=== PATIENT | female | born 1990 | race Caucasian/White ===

== ENCOUNTER 2019-07-02 16:43 | Emergency (ER) | payer SELFPAY ==
--- NOTE | 2019-07-02 16:45 | ECG_ITS ---
Measurements Intervals [place] Rate: 58 P: 46 NM: 140 QRS: 28 QRSD: 89 T: 29 QT: 369 QTc: 362 Interpretive Statements SINUS BRADYCARDIA WITH SINUS ARRHYTHMIA BORDERLINE ECG Electronically Signed On 07-02-2019 18:51:02 CDT by Oscar Hernandez D.O.
[2019-07-02 17:09] VITALS: BP 118/69; PULSE 89; RESP 16; TEMP 36.4; O2SAT 98
--- NOTE | 2019-07-02 19:49 | PC.NURSE ---
PATIENT CALLED AT THIS TIME FROM WAITING ROOM, NO ANSWER.
== END 2019-07-02 19:49 | disposition left against medical advice (07) ==
LOC: ANHED 20:49
DX: T75.4XXA Electrocution, initial encounter (principal); W86.0XXA Exposure to domestic wiring and appliances, initial encounter
CPT/HCPCS: 93005; 99199

== ENCOUNTER 2019-08-18 22:02 | Emergency (ER) | payer SELFPAY ==
--- NOTE | ~2019-08-18 | XR_ITS ---
EXAMINATION: XR ribs RT 2V w CXR 2V DATE: 08/18/2019 23:57 INDICATION: Right chest pain. TECHNIQUE: Frontal and lateral views of the chest and 3 views of the right ribs were obtained. COMPARISON: Chest 2 views 03/26/2019, CT abdomen and pelvis 08/18/2019 FINDINGS: CHEST TWO VIEWS: The chest demonstrates clear lungs without pneumonia, pleural effusion, or pneumotho rax. The heart size is normal. RIGHT RIBS: There is no rib fracture. IMPRESSION: 1. No rib fracture. Reviewed, dictated and finalized at location A. IMPRESSION: 1. No rib fracture.
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
[2019-08-18 22:03] VITALS: BP 122/82; PULSE 80; RESP 18; TEMP 36.6; O2SAT 100
[2019-08-18] MEDS: KETOROLAC 30 MG/ML VIAL (*BKC) IV PUSH (23:00)
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
[2019-08-18 23:43] LABS: Estimated CRCL calculation 105 ml/min; Estimated Glomerular Filt Rate > 60
[2019-08-19 01:32] VITALS: BP 122/74; PULSE 76; RESP 19; TEMP 36.8; O2SAT 100
== END 2019-08-19 01:33 | disposition home or self-care (01) ==
PROVIDERS: Emergency Provider Emergency Medicine
DX: S20.211A Contusion of right front wall of thorax, initial encounter (principal); S30.1XXA Contusion of abdominal wall, initial encounter; J45.909 Unspecified asthma, uncomplicated; K50.90 Crohn's disease, unspecified, without complications; Z85.048 Personal history of other malignant neoplasm of rectum, rectosigmoid junction, and anus; F17.200 Nicotine dependence, unspecified, uncomplicated; Y04.8XXA Assault by other bodily force, initial encounter
CPT/HCPCS: 36415; 71046; 71100; 74177; 96374; 99284; J1885; Q9967

== ENCOUNTER 2020-08-04 10:43 | Emergency (ER) | payer SELFPAY ==
--- NOTE | ~2020-08-04 | XR_ITS ---
EXAMINATION: XR shoulder LT min 2V DATE: 08/04/2020 11:23 INDICATION: Left shoulder pain. Injury. TECHNIQUE: 4 views of left shoulder were obtained. COMPARISON: None. FINDINGS: Bone alignment is normal. No fracture. There is mild osteoarthritis of acromioclavicular barbara int. Glenoid humeral joint is normal. There are enthesophytes at coracoclavicular ligament. IMPRESSION: 1. Mild osteoarthritis of acromioclavicular joint. Reviewed, dictated and finalized at location A.
--- NOTE | ~2020-08-04 | XR_ITS ---
EXAMINATION: XR_CERV2-3V_CR DATE: 08/04/2020 11:23 INDICATION: Left-sided neck pain. Injury. TECHNIQUE: 2 views of cervical spine were obtained. COMPARISON: Cervical spine radiographs 08/18/2009. FINDINGS: The cervical spine is not well visualized on the lateral view inferior to C6. Bone alignmen t is normal. Vertebral body heights are normal. Intervertebral disc heights are normal. The facet martha nts are unremarkable. No central canal stenosis or prevertebral soft tissue swelling. IMPRESSION: 1. Normal cervical spine. Note that the cervical spine is not well visualized on the lateral view inf erior to C6. Reviewed, dictated and finalized at location A. IMPRESSION: 1. Normal cervical spine. Note that the cervical spine is not well visualized o n the lateral view inferior to C6.
[2020-08-04 11:01] VITALS: BP 108/63; PULSE 62; RESP 16; TEMP 36.6; O2SAT 100
[2020-08-04 11:08] VITALS: BP 108/63; PULSE 62; RESP 16; TEMP 36.6; O2SAT 100
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
== END 2020-08-04 11:46 | disposition home or self-care (01) ==
PROVIDERS: Emergency Provider Emergency Medicine
DX: S46.012A Strain of muscle(s) and tendon(s) of the rotator cuff of left shoulder, initial encounter (principal); V86.96XA Unspecified occupant of dirt bike or motor/cross bike injured in nontraffic accident, initial encounter; J45.909 Unspecified asthma, uncomplicated; F31.9 Bipolar disorder, unspecified; K50.90 Crohn's disease, unspecified, without complications; Z85.038 Personal history of other malignant neoplasm of large intestine; F17.200 Nicotine dependence, unspecified, uncomplicated
CPT/HCPCS: 72040; 73030; 99214; G0463

== ENCOUNTER 2020-09-09 16:26 | Emergency (ER) | payer SELFPAY ==
[2020-09-09 16:30] VITALS: BP 112/73; PULSE 92; RESP 16; TEMP 37.4; O2SAT 99
[2020-09-09 16:45] VITALS: BP 112/73; PULSE 92; RESP 16; TEMP 37.4; O2SAT 99
--- NOTE | 2020-09-09 16:57 | ED.URI ---
HPI - URI/Sore Throat General Chief Complaint: Upper Respiratory Infection Stated Complaint: sob Time Seen by Provider: 09/09/20 16:50 Source: patient, family and RN notes reviewed Mode of arrival: ambulatory Limitations: no limitations History of Present Illness HPI Narrative: 30 year old female who presents to [facility] care with complaints of feelings of upper chest tightness, cough,exhaustion, shortness of breath for 1 month duration with audible wheezing noted. Patient states history of asthma and states has been using inhaler more frequently with little improvement in her symptoms,patient states only has albuterol inhaler previously had Trilogy but hasn't had money or PCP to get other inhalers. Patient denies any known fevers, chills, or sweats,states that her cough is dry, denies any sore throat, sinus congestion or ear pain, admits to some nasal drainage at times which is clear. Patient admits to daily tobacco use which she states has decreased use and also smokes marijuana. Patient has history of bipolar disease and states she takes no psychiatric medications. MD elicited complaint: cough, rhinorrhea and other (wheezing) Pertinent past history: pneumonia, COPD, asthma and other (bronchitis and tobacco abuse) Onset (ago): month(s) (1) Consistency: intermittent (tightness to upper chest) Severity: mild Pain scale (0-10): 1 Description of mucous: clear Able to tolerate fluids by mouth: Yes Exacerbating factors: exertion Relieving factors: nothing Treatments prior to arrival: other (inhaler) Related Data Home Medications Medication Instructions Recorded Confirmed Cbd 09/09/20 ProAir HFA 09/09/20 Ventolin 09/09/20 Allergies Allergy/AdvReac Type Severity Reaction Status Date / Time lamotrigine Allergy Unknown Unconscious Verified 08/04/20 11:08 Review of Systems Review of Systems: Narrative: CONSTITUTIONAL: Denies fever, chills, or sweats. EYES: Denies visual changes, redness, or discharge. ENT: Reports some clear rhinorrhea, no congestion, sore throat, or otalgia. CARDIOVASCULAR: Denies chest pain reports tightness intermittent to upper chest, no palpitations, or edema. RESPIRATORY: Positive cough and dyspnea with wheezing GASTROINTESTINAL: Denies abdominal pain, nausea, vomiting, or diarrhea. GENITOURINARY: Denies dysuria or hematuria. SKIN: Denies rash or itching. MUSCULOSKELETAL: Denies back pain, joint pain, or myalgia. NEUROLOGIC: Denies headache, numbness, or weakness. PSYCHIATRIC: Positive for history of anxiety and depression. All systems reviewed & are unremarkable except as noted in HPI and below PMFSH Past Medical History Medical History (Updated 09/12/20 @ 11:09 by Elyssa Wills NP) Asthma Bipolar disorder COPD (chronic obstructive pulmonary disease) case management patient History of rectal cancer UTI (urinary tract infection) Surgical History Surgical History History of resection of rectum History of tonsillectomy History of tubal ligation Family History Family History (Updated 09/12/20 @ 11:02 by Elyssa Wills NP) Other Cancer Diabetes mellitus Hypertension Social History Social History (Updated 09/12/20 @ 11:02 by Elyssa Wills NP) Smoking status: Current every day smoker Alcohol intake: unknown Substance use: current Substance use type: marijuana Living arrangements: with friend(s) Gender identity (if verbalized by the patient): Female Comments At time of signature, agree with nursing past medical, surgical, social and family history. There is no relevant family history pertinent to the presenting complaint Exam Narrative: Exam Narrative: GENERAL: Well-appearing, well-nourished, unkept appearance and in no acute distress. HEAD: Normocephalic, atraumatic. EYES: PERRLA and EOMI. ENT: Nares clear, clear rhinorrhea no epistaxis. Mucous membranes moist. TM's normal with good light reflex, thro
--- NOTE | 2020-09-09 17:15 | PC.NURSE ---
tomi sosa. unable to scan.
[2020-09-09 17:38] VITALS: PULSE 92; RESP 18; O2SAT 100
== END 2020-09-09 17:38 | disposition home or self-care (01) ==
PROVIDERS: Emergency Provider Registered Nurse
DX: J40 Bronchitis, not specified as acute or chronic (principal); J06.9 Acute upper respiratory infection, unspecified; J44.9 Chronic obstructive pulmonary disease, unspecified; F17.210 Nicotine dependence, cigarettes, uncomplicated; F12.20 Cannabis dependence, uncomplicated; Z85.048 Personal history of other malignant neoplasm of rectum, rectosigmoid junction, and anus
CPT/HCPCS: 94640; 99213; G0463